=== PATIENT | male | born 1965 | race Hispanic/Latino ===

== ENCOUNTER 2017-06-13 08:10 | Outpatient (CLI) | payer OTHER ==
--- NOTE | 2017-06-13 10:15 | XRay Report ---
LEFT KNEE RADIOGRAPHS INDICATION: Left knee pain. COMPARISON: None similar at this institution. FINDINGS: Standing AP, lateral, oblique and sunrise views of the left knee suggest mild medial compartment narrowing. Grossly intact articulation. Mild tibial spines and patellar degenerative spurring. Small patellar enthesophytes. Approximately 1.3 cm proximal tibial metaphyseal osteochondroma medially not entirely excluded. Faint horizontal densities project within the joint space/CPPD. No suprapatellar effusion. CONCLUSION: Left knee osteoarthrosis, including chondrocalcinosis and questionable small proximal medial tibial metaphyseal osteochondroma, as described. Please also correlate clinically, with prior relevant imaging through this region or comparative views of the opposite knee, if available. Thank you for the opportunity to participate in this patient's care.
== END 2017-06-13 08:11 | disposition home or self-care (01) ==
LOC: SPVIMAG 08:10
PROVIDERS: ATTEND Orthopaedic Surgery Sports Medicine
DX: M17.12 Unilateral primary osteoarthritis, left knee (principal); M11.262 Other chondrocalcinosis, left knee; M25.862 Other specified joint disorders, left knee